=== PATIENT | female | born 1950 | race Caucasian/White ===

== ENCOUNTER 2019-01-24 08:43 | Day surgery (SDC) | payer OTHER, MEDICARE ==
[2019-01-19 09:04] VITALS: BMI 23.8
[~2019-01-24 08:43] MED LIST: BUPIVACAINE HCL/PF 0.5% (5 MG/ML) 30 ML VIAL IJ ONE; TRIAMCINOLONE ACET 40MG/1ML VIAL IJ ONE
[2019-01-24 09:16] VITALS: TEMP 97.7
[2019-01-24] MEDS ORDERED: MIDAZOLAM HCL 2 MG/2 ML SINGLE DOSE VIAL ONE ×2 (10:01→10:56)
[2019-01-24] MEDS ORDERED: PROPOFOL 20 ML ONE (10:01)
[2019-01-24] MEDS ORDERED: BUPIVACAINE HCL/PF 0.5% (5MG/ML) 10 ML VIAL ONE (10:15)
[2019-01-24] MEDS ORDERED: TRIAMCINOLONE ACET 40MG/1ML VIAL ONE (10:15)
[2019-01-24] MEDS ORDERED: LIDOCAINE HCL/EPINEPHRINE/PF 20 ML VIAL ONE (10:15)
[2019-01-24] MEDS ORDERED: ceFAZolin SODIUM 1 GM VIAL ONE (10:51)
[2019-01-24] MEDS ORDERED: ONDANSETRON 4 MG/2 ML VIAL ONE (10:54)
[2019-01-24] MEDS ORDERED: DEXAMETHASONE SOD PHOSPHATE 4 MG/1 ML VIAL ONE (10:54)
[2019-01-24] MEDS ORDERED: ceFAZolin SODIUM 1 GM VIAL IVPB ONE (10:54)
[2019-01-24] MEDS ORDERED: LIDO 2%/EPI 1:200000 PRESRVFRE (20 ML SDVIAL) INF ONE (11:00)
--- NOTE | 2019-01-24 11:25 | OP ---
DATE OF OPERATION: DATE OF DICTATION: 01/24/2019 PREOPERATIVE DIAGNOSIS: Skin lesion plantar left foot plantar flex metatarsal with metatarsal bursitis and exostosis, left No. 3 and hammertoe No. 2. PROCEDURE: The patient was prepped and draped in the usual sterile manner. An incision was performed over the 2nd toe. It was carried down to the level of the PIPJ. Previous surgery had been done there. The pseudo joint was prepped and the use of implant was designed to hold the toe straight as it was a secondary correction. The implant was utilized following joint preparation and noted to sit in excellent position and the toe was noted to sit in the corrected position. This was following removal of bone in appropriate manner. Attention was then directed to the 3rd metatarsal region. A linear incision was performed. It was carried down to the level of the metatarsal. An osteotomy was performed using a surgical saw and it was fixated with a single 2.0 screw. The skin lesion was removed as well plantarly and the area was Bovied to prevent bleeding as well. The patient tolerated all procedures and anesthesia. Prior to all the closure, saline was used in order to flush out all the wounds. Sterile bandage applied. Good correction was noted on x-ray intraoperatively. The patient tolerated the procedures and anesthesia well. ALYSSA VILLAREAL/[id number]
[2019-01-24] MEDS ORDERED: TRIAMCINOLONE ACET 40MG/1ML VIAL IJ ONE (12:08)
[2019-01-24] MEDS ORDERED: BUPIVACAINE HCL/PF 0.5% (5 MG/ML) 30 ML VIAL IJ ONE (12:08)
[2019-01-24] MEDS ORDERED: oxyCODONE HCL 5 MG TABLET PO PRN ×2 (13:15)
[2019-01-24] MEDS ORDERED: LACTATED RINGERS SOLUTION 1,000 ML IV SCH (13:15)
[2019-01-24] MEDS ORDERED: ONDANSETRON 4 MG/2 ML VIAL IVPUSH PRN (13:15)
[2019-01-24] MEDS ORDERED: ACETAMINOPHEN 325 MG TABLET (FP) PO PRN (13:15)
[2019-01-24 13:53] VITALS: BP 159/86; PULSE 84
== END 2019-01-24 13:35 | disposition home or self-care (01) ==
LOC: FASU 08:43
PROVIDERS: ATTEND Podiatrist Foot Surgery
PROC: 0HBNXZX Excision of Left Foot Skin, External Approach, Diagnostic (ICD-10-PCS; 2019-01-24)
PROC: 0SRQ0JZ Replacement of Left Toe Phalangeal Joint with Synthetic Substitute, Open Approach (ICD-10-PCS; principal; 2019-01-24 10:30)
PROC: 0QSP04Z Reposition Left Metatarsal with Internal Fixation Device, Open Approach (ICD-10-PCS; 2019-01-24 10:30)
DX: M20.42 Other hammer toe(s) (acquired), left foot (principal); M71.572 Other bursitis, not elsewhere classified, left ankle and foot; L98.9 Disorder of the skin and subcutaneous tissue, unspecified
CPT/HCPCS: 73630-TC-LT